=== PATIENT | female | born 1960 | race African-American/Black ===

== ENCOUNTER 2020-07-01 07:28 | Emergency (ER) | payer OTHER ==
[~2020-07-01] VITALS: Ht 167.6 cm; Wt 89.8 kg
[2020-07-01] MEDS ORDERED: HYDROCHLOROTHIA25 M1 PO (07:45)
[2020-07-01 08:23] VITALS: BP 142/80
== END 2020-07-01 08:23 | disposition home or self-care (01) ==
LOC: M.ERS 07:28
DX: B34.9 Viral infection, unspecified (principal); Z20.828 Contact with and (suspected) exposure to other viral communicable diseases; Z85.3 Personal history of malignant neoplasm of breast; Z79.899 Other long term (current) drug therapy